=== PATIENT | male | born 1950 | race Caucasian/White ===

== ENCOUNTER 2016-05-15 13:54 | Emergency (ER) | payer BC ==
[~2016-05-15] VITALS: Ht 185.4 cm; Wt 97.7 kg
[~2016-05-15 13:54] MED LIST: ASPIRIN 81M81 MG/TA2 PO; CIPRO 500MG TA500 MG PO; COLACE 100100 MG/CAP PO; FLOMAX 0.40.4 MG/CAP PO; LYSINE1000 MG PO; MASON NATURAL1000 MG PO; NATURAL E400 IU PO; NIACIN1000 MG PO; NO HOME MEDICATIONS; NORCO 325 MG-51 TAB PO; NORCO 325 MG-7.1 TAB PO; PYRIDIUM 100MG100 MG PO; PYRIDIUM200 M1 PO; VITAMIN C500 MG PO; VITAMIN D32000 IU PO
[2016-05-15 13:56] VITALS: TEMP 97.8
[2016-05-15 14:48] LABS: BASO # 0.1 (0.0-0.2); EOS # 0.1 (0.0-0.7); EOS % 2.4 % (0-4.0); GRAN # 3.3 (1.4-6.5); GRAN % 57.8 % (42.2-75.2); HEMATOCRIT 46.2 % (42.0-52.0); HEMOGLOBIN 15.9 g/dl (13.5-18.0); LYMPH # 1.6 (1.2-3.4); LYMPH % 28.1 % (20.0-51.0); MEAN CELL VOLUME 89 fl (80.0-100.0); MEAN CORPUSCULAR HEMOGLOBIN 31 pg (27.0-31.0); MEAN CORPUSCULAR HGB CONC 34 g/dl (33.0-37.0); MONO # 0.6 (0.1-0.6); MONO % 10.5 % (1.7-9.3); PLATELET COUNT 133 K/mm3 (130-400); RED BLOOD COUNT 5.21 M/mm3 (4.20-5.60); REDCELL DISTRIBUTION WIDTH-CV 12.2 % (11.5-14.5); WHITE BLOOD COUNT 5.7 K/mm3 (4.8-10.8)
[2016-05-15 15:11] LABS: ADJUSTED CALCIUM 9.1 mg/dL (8.4-10.2); ALANINE AMINOTRANSFERASE 49 U/L (21-72); ALBUMIN 4.1 gm/dL (3.5-5.0); ALKALINE PHOSPHATASE 75 U/L (50-136); ANION GAP 9 mmol/L (7-16); BLOOD UREA NITROGEN 16 mg/dL (9-20); CALCIUM 9.2 mg/dL (8.4-10.2); CARBON DIOXIDE 27 mmol/L (22-30); CHLORIDE 103 mmol/L (98-107); CREATININE, serum 0.96 mg/dL (0.66-1.25); GLUCOSE 91 mg/dL (74-106); POTASSIUM 3.8 mmol/L (3.4-5.0); SODIUM 139 mmol/L (137-145); TOTAL PROTEIN 7.4 gm/dL (6.4-8.2)
[2016-05-15 15:43] LABS: TROPONIN-I < 0.012 ng/mL (0.000-0.034)
[2016-05-15 15:44] LABS: LIPASE 100 U/L (23-300)
[2016-05-15 16:24] VITALS: BP 159/80; PULSE 70
== END 2016-05-15 16:26 | disposition home or self-care (01) ==
LOC: COL.ER 13:54
PROVIDERS: Emergency Medicine
DX: R07.89 Other chest pain (principal); K30 Functional dyspepsia

== ENCOUNTER 2017-07-10 12:54 | Day surgery (SDC) | payer MEDICARE, OTHER ==
[~2017-07-10] VITALS: Ht 185.4 cm; Wt 101.0 kg
[2017-07-10] MEDS ORDERED: PRAVACHOL 20MG20 MG PO (13:38)
[2017-07-10] MEDS ORDERED: ASPIRIN 81M81 MG/TA2 PO (13:38)
[2017-07-10 13:49] VITALS: BP 145/91; PULSE 75; TEMP 97.5
[2017-07-10 15:50] VITALS: BP 151/92; PULSE 79
[2017-07-10 16:00] VITALS: BP 154/95; PULSE 79
[2017-07-10 16:50] VITALS: BP 135/86; PULSE 70
== END 2017-07-10 16:34 | disposition home or self-care (01) ==
LOC: SDCO 12:54
DX: K63.5 Polyp of colon (principal); K57.30 Diverticulosis of large intestine without perforation or abscess without bleeding; K64.0 First degree hemorrhoids; E78.00 Pure hypercholesterolemia, unspecified
CPT/HCPCS: OP; J2250; J2405; J3010; J7030

== ENCOUNTER 2018-03-21 14:29 | Emergency (ER) | payer MEDICARE, OTHER ==
[~2018-03-21] VITALS: Ht 185.4 cm; Wt 101.4 kg
[~2018-03-21 14:29] MED LIST changes: +PRAVACHOL 20MG20 MG PO
[2018-03-21 14:34] VITALS: TEMP 98
[2018-03-21 15:01] LABS: BASO # 0.1 (0.0-0.2); EOS # 0.2 (0.0-0.7); EOS % 2.8 % (0-4.0); GRAN % 60.3 % (42.2-75.2); HEMATOCRIT 47.8 % (42.0-52.0); HEMOGLOBIN 16.3 g/dl (13.5-18.0); LYMPH # 1.7 (1.2-3.4); LYMPH % 25.3 % (20.0-51.0); MEAN CELL VOLUME 89 fl (80.0-100.0); MEAN CORPUSCULAR HEMOGLOBIN 31 pg (27.0-31.0); MEAN CORPUSCULAR HGB CONC 34 g/dl (33.0-37.0); MEAN PLATELET VOLUME 11.9 fl (7.4-10.4); MONO # 0.7 (0.1-0.6); MONO % 10.3 % (1.7-9.3); PLATELET COUNT 122 K/mm3 (130-400); RED BLOOD COUNT 5.35 M/mm3 (4.20-5.60); REDCELL DISTRIBUTION WIDTH-CV 12.4 % (11.5-14.5)
[2018-03-21 15:09] LABS: ALANINE AMINOTRANSFERASE 42 U/L (21-72); ALKALINE PHOSPHATASE 70 U/L (50-136); ANION GAP 6 mmol/L (7-16); AST,SGOT 24 U/L (15-37); BILIRUBIN,TOTAL 0.7 mg/dL (0.0-1.0); BLOOD UREA NITROGEN 14 mg/dL (9-20); CALCIUM 8.9 mg/dL (8.4-10.2); CARBON DIOXIDE 28 mmol/L (22-30); CHLORIDE 108 mmol/L (98-107); CREATININE, serum 1.12 mg/dL (0.66-1.25); GLUCOSE 104 mg/dL (74-106); POTASSIUM 3.9 mmol/L (3.4-5.0); SODIUM 141 mmol/L (137-145)
[2018-03-21 15:24] LABS: TROPONIN-I < 0.012 ng/mL (0.000-0.034)
[2018-03-21 17:30] VITALS: BP 141/88; PULSE 58
== END 2018-03-21 17:26 | disposition home or self-care (01) ==
LOC: COL.ER 14:29
PROVIDERS: Emergency Medicine
DX: R07.89 Other chest pain (principal); E78.5 Hyperlipidemia, unspecified; Z87.442 Personal history of urinary calculi; Z90.49 Acquired absence of other specified parts of digestive tract; Z90.89 Acquired absence of other organs; Z79.82 Long term (current) use of aspirin

== ENCOUNTER → 2018-03-22 | Outpatient (CLI) | payer MEDICARE, OTHER ==
[~2018-03-22] VITALS: Ht 185.4 cm; Wt 101.0 kg
[2018-03-22 08:32] VITALS: BP 156/100; PULSE 69
== END ==
LOC: COL.RAD 06:59
DX: R07.9 Chest pain, unspecified (principal)
CPT/HCPCS: A9502

== ENCOUNTER 2019-04-21 21:52 | Emergency (ER) | payer MEDICARE, OTHER ==
[~2019-04-21] VITALS: Ht 185.4 cm; Wt 100.0 kg
[2019-04-21 22:04] VITALS: TEMP 97.8
[2019-04-22] MEDS ORDERED: HCTZ12.5TAB PO (01:38)
[2019-04-22 01:49] VITALS: BP 155/87; PULSE 61
== END 2019-04-22 01:51 | disposition home or self-care (01) ==
LOC: COL.ER 21:52
DX: I10 Essential (primary) hypertension (principal); E78.00 Pure hypercholesterolemia, unspecified; K21.9 Gastro-esophageal reflux disease without esophagitis; Z90.49 Acquired absence of other specified parts of digestive tract; Z79.82 Long term (current) use of aspirin

== ENCOUNTER 2019-04-27 10:34 | Emergency (ER) | payer MEDICARE, OTHER ==
[~2019-04-27] VITALS: Ht 185.4 cm; Wt 100.0 kg
[~2019-04-27 10:34] MED LIST changes: +HCTZ12.5TAB PO
[2019-04-27 10:49] VITALS: TEMP 97.1
[2019-04-27 11:21] LABS: BASO # 0.1 (0.0-0.2); BASO % 0.9 % (0.0-2.0); EOS # 0.2 (0.0-0.7); EOS % 2.6 % (0-4.0); GRAN # 3.3 (1.4-6.5); GRAN % 58.2 % (42.2-75.2); HEMATOCRIT 46.4 % (42.0-52.0); HEMOGLOBIN 15.8 g/dl (13.5-18.0); LYMPH # 1.6 (1.2-3.4); LYMPH % 27.2 % (20.0-51.0); MEAN CELL VOLUME 91 fl (80.0-100.0); MEAN CORPUSCULAR HEMOGLOBIN 31 pg (27.0-31.0); MEAN CORPUSCULAR HGB CONC 34 g/dl (33.0-37.0); MONO # 0.6 (0.1-0.6); MONO % 10.8 % (1.7-9.3); PLATELET COUNT 117 K/mm3 (130-400); RED BLOOD COUNT 5.11 M/mm3 (4.20-5.60); REDCELL DISTRIBUTION WIDTH-CV 12.4 % (11.5-14.5)
[2019-04-27 11:27] LABS: PROTHROMBIN TIME 11.8 SECONDS (9.7-12.8)
[2019-04-27 11:29] LABS: ALANINE AMINOTRANSFERASE 34 U/L (21-72); ALBUMIN 4.2 gm/dL (3.5-5.0); ALKALINE PHOSPHATASE 76 U/L (50-136); ANION GAP 7 mmol/L (7-16); AST,SGOT 26 U/L (15-37); BILIRUBIN,TOTAL 1.3 mg/dL (0.0-1.0); BLOOD UREA NITROGEN 18 mg/dL (9-20); CALCIUM 8.9 mg/dL (8.4-10.2); CARBON DIOXIDE 27 mmol/L (22-30); CHLORIDE 106 mmol/L (98-107); CREATININE, serum 0.96 (0.66-1.25); GLUCOSE 82 mg/dL (74-106); LIPASE 80 U/L (23-300); POTASSIUM 4.1 mmol/L (3.4-5.0); SODIUM 140 mmol/L (137-145); TOTAL PROTEIN 7.2 gm/dL (6.4-8.2)
[2019-04-27] MEDS ORDERED: LOTENSIN 1010 MG/TAB PO (11:29)
[2019-04-27 11:46] LABS: TROPONIN-I < 0.012 ng/mL (0.000-0.035)
[2019-04-27 14:57] VITALS: BP 132/80; PULSE 69
== END 2019-04-27 15:10 | disposition home or self-care (01) ==
LOC: COL.ER 10:34
PROVIDERS: Emergency Medicine
DX: R07.89 Other chest pain (principal); I10 Essential (primary) hypertension; Z79.82 Long term (current) use of aspirin
CPT/HCPCS: J7030; Q9967

== ENCOUNTER 2020-12-24 07:24 | Day surgery (SDC) | payer MEDICARE ==
[~2020-12-24] VITALS: Ht 185.4 cm; Wt 98.6 kg
[~2020-12-24 07:24] MED LIST changes: +LOTENSIN 1010 MG/TAB PO
[2020-12-24] MEDS ORDERED: TOPROL XL 50MG50 MG PO (08:25)
[2020-12-24] MEDS ORDERED: PRILOSEC 20MG20 MG PO (08:26)
[2020-12-24] MEDS ORDERED: BENICAR 20MG TA20 MG PO (08:27)
[2020-12-24 08:33] VITALS: BP 109/71; PULSE 70; TEMP 97
[2020-12-24 09:15] VITALS: BP 118/74; PULSE 66
[2020-12-24 09:30] VITALS: BP 127/72; PULSE 68
--- NOTE | 2020-12-24 09:42 | NUR ---
PT RETURNED FROM ENDO PROCEDURE ROOM INTO BAY #7. PT REQUESTS PUDDING, CRANBERRY JUICE. DENIES PAIN OR NAUSEA. LUNGS CLEAR, HRR, BOWEL SOUNDS PRESENT. IVF INFUSING PATENT INTO IV SITE WITHOUT DIFFICULTY. AT BEDSIDE TALKING WITH PATIENT. WILL CONT TO MONITOR PROGRESS.
[2020-12-24 09:45] VITALS: BP 130/78; PULSE 64
--- NOTE | 2020-12-24 09:45 | NUR ---
PT TOLERATING FOOD AND FLUIDS WITHOUT DIFFICULTY,DENIES PAIN. PT TALKING WITH DR DAMON ON FINDINGS OF THE UPPER SCOPE. AT PATIENTS SIDE, WILL CONT TO MONITOR.
--- NOTE | 2020-12-24 10:14 | NUR ---
PT TOLERATING FOOD AND FLUIDS WITHOUT DIFFICULTY. IV DC'D WTIHOUT DIFFICULTY. DISMISSAL INSTRUCTIONS GIVEN, QUESTIONS ANSWERED. PT DISMISSED THROUGH THE PATIENT ENTRANCE PER WC TO FAMILY VEHICLE. DRIVING.
== END 2020-12-24 10:17 | disposition home or self-care (01) ==
LOC: SDCO 07:24
DX: K29.50 Unspecified chronic gastritis without bleeding (principal); K31.7 Polyp of stomach and duodenum; Z85.828 Personal history of other malignant neoplasm of skin; Z79.899 Other long term (current) drug therapy; N40.0 Benign prostatic hyperplasia without lower urinary tract symptoms; K21.9 Gastro-esophageal reflux disease without esophagitis; I10 Essential (primary) hypertension; E78.5 Hyperlipidemia, unspecified; Z85.048 Personal history of other malignant neoplasm of rectum, rectosigmoid junction, and anus; I62.00 Nontraumatic subdural hemorrhage, unspecified; Z20.822 Contact with and (suspected) exposure to COVID-19
CPT/HCPCS: C1726; J2704; J7120

== ENCOUNTER → 2021-02-02 | Outpatient (CLI) | payer MEDICARE ==
[~2021-02-02] MED LIST changes: +BENICAR 20MG TA20 MG PO; +PRILOSEC 20MG20 MG PO; +TOPROL XL 50MG50 MG PO
== END ==
LOC: COL.RAD 09:40
DX: C21.0 Malignant neoplasm of anus, unspecified (principal)
CPT/HCPCS: Q9967

== ENCOUNTER 2021-04-15 10:34 | Outpatient (CLI) | payer MEDICARE ==
[2021-04-15] VITALS (7 sets, daily range): BP systolic 143–186; BP diastolic 82–92; PULSE 52–71; TEMP 97.9
[2021-04-15] MEDS ORDERED: PRAVACHOL 20MG20 MG PO (12:03)
[2021-04-15] MEDS ORDERED: VITAMIND3 5000 PO (12:04)
[2021-04-15] MEDS ORDERED: VITAMINC1000TA PO (12:04)
[2021-04-15] MEDS ORDERED: CALCIUM-MAGNES1 EAC1 PO (12:05)
[2021-04-15] MEDS ORDERED: LYSINE 500500 MG/TAB PO (12:10)
== END 2021-04-15 13:10 | disposition home or self-care (01) ==
LOC: EUO 10:34
DX: U07.1 COVID-19 (principal)
CPT/HCPCS: M0245

== ENCOUNTER → 2024-02-12 | Outpatient (CLI) | payer MEDICARE ==
[~2024-02-12] MED LIST changes: +CALCIUM-MAGNES1 EAC1 PO; +LYSINE 500500 MG/TAB PO; +VITAMINC1000TA PO; +VITAMIND3 5000 PO
== END ==
LOC: COL.RAD 10:29
DX: R31.0 Gross hematuria (principal)